=== PATIENT | female | born 1975 | race Caucasian/White ===

== ENCOUNTER 2016-03-16 13:22 | Emergency (ER) | payer SELFPAY ==
[2016-03-16] MEDS ORDERED: Dexamethasone 20 MG/5 ML VIAL ONE (13:42)
[2016-03-16] MEDS ORDERED: Acetaminophen/Codeine 30-300mg Tablet ONE (13:42)
--- NOTE | 2016-03-16 15:16 | ERRECORD ---
[facility] EMERGENCY RECORD HPI SHOULDER (13:45 BPIC) CHIEF COMPLAINT: Patient presents for evaluation of injury, to the left shoulder. HISTORIAN: History provided by patient, pt was lifting a cinder block 3 days ago and started to have pain shoot down her left arm after she felt a pop in her left shoulder. pain started at her wrist and has progressed to her shoulder and left side of neck. she has tried Tylenol 3 and ibuprofen and lidocaine crem without much improvement. multiple back problems and recent carpal tunnel surgery have left her with extra Tylenol 3 to take. sharp pain, radiates down the left arm and improves if she holds the left arm still with her right arm. ROS (13:48 BPIC) CONSTITUTIONAL: Negative constitutional review of systems. EYES: Negative eye review of systems. ENT: Negative ears, nose, throat review of systems. CARDIOVASCULAR: Negative cardiovascular review of systems. RESPIRATORY: Negative respiratory review of systems. GI: Negative gastrointestinal review of systems. MUSCULOSKELETAL: see hpi. SKIN: Negative skin review of systems. PSYCHIATRIC: Negative psychiatric review of systems. NOTES: All other ROS is negative except as listed in HPI. PAST MEDICAL HISTORY MEDICAL HISTORY: Notes: chronic back/neck pain, Past medical history includes endocrine disease, hypothyroidism, Past medical history includes history of malignancy, primary site cervical. (13:37 MSPE) FEMALE SURGICAL HISTORY: Surgical history of carpal tunnel surgery, Date of surgery Jan, 2016, Notes: bilateral, hemorrhoidectomy, Surgical history of section, Notes: x 2. (13:37 MSPE) PSYCHIATRIC HISTORY: No previous psychiatric history. (13:37 MSPE) SOCIAL HISTORY: Patient denies alcohol use, Patient denies drug use, Patient currently uses tobacco, smokes cigarettes 1/2 ppd. (13:37 MSPE) NOTES: I have reviewed and agree with the PMH/PSxH/FamHx/SocHx obtained by the nurse. (13:48 BPIC) KNOWN ALLERGIES Penicillins CURRENT MEDICATIONS Synthroid: TABLET : Strength - 100 mcg : ORAL Patient Dose: 137 mcg Oral once a day (in the morning). (13:27 MSPE) &a-1R&a+25V*p+0X*c5245H*c202B*c15G*c2P*p-0X&a-25V&a+1R Name: ThorneGillian suarez : 1975 F40 MedRec: [id number] AcctNum: [id number] Prepared: MonMar 16, 2016 15:19 by Interface Page 1 of 3 pMD [facility] EMERGENCY RECORD Tylenol-Codeine #3: TABLET : Strength - 300 mg-30 mg : ORAL Patient Dose: 1 tab(s) Oral 2 times a day. (13:28 MSPE) ibuprofen: TABLET : Strength - 800 mg : ORAL Patient Dose: 1 tab(s) Oral 2 times a day. (13:28 MSPE) Zanaflex: TABLET : Strength - 4 mg : ORAL Patient Dose: 1 tab(s) Oral once a day (at bedtime). (13:29 MSPE) Cymbalta: CAPSULE,DELAYED RELEASE (ENTERIC COATED) : Strength - 60 mg : ORAL Patient Dose: 1 tab(s) Oral once a day (at bedtime). (13:30 MSPE) VITAL SIGNS (13:25 MSPE) VITAL SIGNS: BP: 185/79, Pulse: 79, Resp: 18, Temp: 98.2 (Oral), Pain: 8, O2 sat: 96 on Room Air, Time: 03/16/2016 13:25. PHYSICAL EXAM CONSTITUTIONAL: Vital signs reviewed, Patient afebrile, Pulse normal, Blood pressure normal, Respiratory rate normal, Patient appears non toxic, Patient appears pain free, Patient alert and oriented to person, place and time. (13:48 BPIC) HEAD: Head exam included findings of head atraumatic, normocephalic. (13:48 BPIC) EYES: Eye exam included findings of eyelids normal to inspection, Pupils equally round and reactive to light, Extraocular muscles intact. (13:48 BPIC) ENT: ENT exam normal. (13:48 BPIC) NECK: Neck exam included findings of normal range of motion, Trachea midline. (13:48 BPIC) RESPIRATORY CHEST: Respiratory exam included findings of no respiratory distress, Breath sounds clear. (13:48 BPIC) CARDIOVASCULAR: Cardiovascular exam included findings of heart rate regular rate and rhythm, Heart sounds normal. (13:48 BPIC) UPPER EXTREMITY: carpal tunnel surgery scars to both anterior wrists. otherwise right arm is normal. left arm has tenderness to anterior shoulder and left upper back just medial to the scapula. (13:49 BPIC) NEURO: Neuro exam findings include patient oriented to person, place and time, Speech normal. (13:48 BPIC) PSYCHIATRIC: Psychiatric exam included findings of patient oriented to person place and time, Normal affect. (13:48 BPIC) RADIOLOGYINTERPRETATION (14:03 BPIC) UPPER EXTERMITIES: Radiological interpretation of, the left shoulder shows, no fracture, no dislocation, no foreign body, no bony lesion, no degenerative joint disease, no effusion, calcific tendinosis. &a-1R&a+25V*p+0X*u9706G*c202B*c15G*c2P*p-0X&a-25V&a+1R Name: Gillian Thorne : 1975 F40 MedRec: [id number] AcctNum: [id number] Prepared: MonMar 16, 2016 15:19 by Interface Page 2 of 3 pMD [facility] EMERGENCY RECORD MEDICATION ADMINISTRATION SUMMARY Drug Name: Decadron injection, Dose Ordered: 10 mg, Route: Intramuscular, Status: Given, Time: 13:49 03/16/2016, Drug Name: Aceta-Codeine, Dose Ordered: 300/30 mg, Route: Oral, Status: Given, Time: 13:48 03/16/2016, Detailed record available in Medication Service section. DOCTOR NOTES (14:03 BPIC) TEXT: I discussed the diagnosis with the patient prior to discharge. All questions were answered. There is no indication for admission currently and the patient will follow up with his primary care physician. Any pertinent labs or imaging was reviewed and dicussed with the patient. If any new or emergent symptoms occur, the patient will return to the emergency department. PROBLEM LIST No recorded problems DIAGNOSIS (14:04 BPIC) FINAL: PRIMARY: left shoulder strain, ADDITIONAL: calcific tendinosis. PRESCRIPTION (14:05 BPIC) Flexeril: TABLET : 5 mg : ORAL : Quantity: 5 Unit: mg Route: ORAL Schedule: every 8 hours PRN Dispense: 30 Unit: tab(s) May substitute. Refills: No Refills . NOTES: No Refills. DISPOSITION PATIENT: Disposition Type: Discharge, Disposition: *Discharge Home, Condition: Good. (14:04 BPIC) Patient left the department. (15:10 MSPE) [place]: BPIC=MD Dyana, Chris MSPE=CANDIDA Andrade, Delores &a-1R&a+25V*p+0X*e1968K*c202B*c15G*c2P*p-0X&a-25V&a+1R Name: Gillian Thorne : 1975 F40 MedRec: [id number] AcctNum: [id number] Prepared: MonMar 16, 2016 15:19 by Interface Page 3 of 3 pMD MTDD
--- NOTE | 2016-03-16 15:23 | PICIS ---
[facility] EMERGENCY RECORD TRIAGE (MonMar 16, 2016 13:27 MSPE) TRIAGE NOTES: pain from left scapula/shoulder down to fingers. Onset three days after carrying cinder block. (MonMar 16, 2016 13:27 MSPE) PATIENT: NAME: Gillian Thorne, AGE: 40, GENDER: female, : Mon1975, TIME OF GREET: MonMar 16, 2016 13:23, PREFERRED LANGUAGE: Kazakh, ETHNICITY: Not or , ECODE BILLING MAP: [facility], SSN: [id number], Zip Code: [address], KG WEIGHT: 98.88, PHONE: CELL, , , PERSON ID: [id number], PCP: Srini SALAMANCA ZENIA. (MonMar 16, 2016 13:27 MSPE) COMPLAINT: LEFT ARM/SHOULDER PAIN. (MonMar 16, 2016 13:27 MSPE) ADMISSION: URGENCY: 4 Non Urgent, ADMISSION SOURCE: Home, TRANSPORT: CAR, BED: ER -03. (MonMar 16, 2016 13:27 MSPE) LMP: LMP: Hysterectomy. (13:37 MSPE) PROVIDERS: TRIAGE NURSE: Delores Andrade RN. (MonMar 16, 2016 13:27 MSPE) VITAL SIGNS: BP 185/79, Pulse 79, Resp 18, Temp 98.2, (Oral), Pain 8, O2 Sat 96, on Room Air, Time 03/16/2016 13:25. (13:25 MSPE) KNOWN ALLERGIES Penicillins CURRENT MEDICATIONS Synthroid: TABLET : Strength - 100 mcg : ORAL Patient Dose: 137 mcg Oral once a day (in the morning). (13:27 MSPE) Tylenol-Codeine #3: TABLET : Strength - 300 mg-30 mg : ORAL Patient Dose: 1 tab(s) Oral 2 times a day. (13:28 MSPE) ibuprofen: TABLET : Strength - 800 mg : ORAL Patient Dose: 1 tab(s) Oral 2 times a day. (13:28 MSPE) Zanaflex: TABLET : Strength - 4 mg : ORAL Patient Dose: 1 tab(s) Oral once a day (at bedtime). (13:29 MSPE) Cymbalta: CAPSULE,DELAYED RELEASE (ENTERIC COATED) : Strength - 60 mg : ORAL Patient Dose: 1 tab(s) Oral once a day (at bedtime). (13:30 MSPE) VITAL SIGNS (13:25 MSPE) VITAL SIGNS: BP: 185/79, Pulse: 79, Resp: 18, Temp: 98.2 (Oral), Pain: 8, O2 sat: 96 on Room Air, Time: 03/16/2016 13:25. NURSING ASSESSMENT: EXTREMITY UPPER (13:32 MSPE) CONSTITUTIONAL: Patient arrives ambulatory, Gait steady, History obtained from patient, Patient appears, anxious, Patient &a-1R&a+25V*p+0X*t2101E*c202B*c15G*c2P*p-0X&a-25V&a+1R Name: Gillian Thorne : 1975 F40 MedRec: [id number] AcctNum: [id number] Prepared: MonMar 16, 2016 15:19 by Interface Page 1 of 6 pMD [facility] EMERGENCY RECORD cooperative, Patient alert, Oriented to person, place and time, Skin warm, Skin dry. PAIN: sts pain from hand/fingertips to left shoulder and scapular area., constant, Noticed pain initially in hand after carrying cinder block. LEFT UPPER EXTREMITY: Left upper extremity assessment findings include capillary refill less than 2 seconds, Skin color normal to hand, Skin temperature to hand warm, Distal sensation intact, radial pulse is +3. NURSING PROCEDURE: DISCHARGE NOTE (15:05 MSPE) DISCHARGE: Patient discharged to home, ambulating without assistance, family driving, accompanied by other family member, Summary of Care printed/ provided, Discharge instructions given to patient, Simple or moderate discharge teaching performed, Prescriptions given and instructions on side effects given, Above person(s) verbalized understanding of discharge instructions and follow-up care, Patient treated and evaluated by physician. BELONGINGS: Belongings remain with patient, Notes: Pt's [id number]-[id number] back. Pt dc'd in NAD. NURSING PROCEDURE: NURSE NOTES (14:10 MSPE) NURSES NOTES: Notes: DC paperwork ready; pt calling [id number] to return for transportation home. NURSING PROCEDURE: SPLINTING (14:00 MSPE) SPLINTING: Splinting indicated for strain care, Splinting indicated for pain control, Notes: arm sling to left arm. FOLLOW-UP: After procedure, capillary refill less than 2 seconds, After procedure, distal circulation intact, After procedure, distal motor function intact, After procedure, distal sensation intact, After procedure, distal pulses present. ORDER DETAILS Order Name: Miscellaneous Nurse Order(s), Status: Done, Time: 14:07 03/16/2016, [facility], - Ordered for: MD Turpin Bryan, - Entered by: CANDIDA Andrade Marilyn - MonMar 16, 2016 14:07, - Quantity: 1, Order Name: XR Shoulder Lt 3 View STANDARD, Status: Active, Time: 13:45 03/16/2016, User: [facility], - Ordered for: MD Turpin Bryan, - Entered by: MD Turpin Bryan - MonMar 16, 2016 13:45, - Quantity: 1. MEDICATION ADMINISTRATION SUMMARY Drug Name: Decadron injection, Dose Ordered: 10 mg, Route: Intramuscular, Status: Given, Time: 13:49 03/16/2016, &a-1R&a+25V*p+0X*n3262Y*c202B*c15G*c2P*p-0X&a-25V&a+1R Name: Gillian Thorne : 1975 F40 MedRec: [id number] AcctNum: [id number] Prepared: MonMar 16, 2016 15:19 by Interface Page 2 of 6 pMD [facility] EMERGENCY RECORD Drug Name: Aceta-Codeine, Dose Ordered: 300/30 mg, Route: Oral, Status: Given, Time: 13:48 03/16/2016, Detailed record available in Medication Service section. MEDICATION SERVICE Aceta-Codeine: Order: Aceta-Codeine (acetaminophen/codeine phosphate) - Dose: 300/30 mg : Oral Schedule: Now Ordered by: [place] Turpin MD Entered by: Chris Turpin MD MonMar 16, 2016 13:43 , Acknowledged by: Delores Andrade RN MonMar 16, 2016 13:45 Documented as given by: [place] Andrade RN MonMar 16, 2016 13:48 Patient, Medication, Dose, Route and Time verified prior to administration. Amount given: 1 tab, Site: Medication administered P.O., Patient appears Awake and alert- acceptable, Correct patient, time, route, dose and medication confirmed prior to administration, Patient advised of actions and side-effects prior to administration, Allergies confirmed and medications reviewed prior to administration, Patient in position of comfort, Side rails up, Cart in lowest position, Family at bedside. Decadron injection: Order: Decadron injection (dexamethasone sod phosphate) - Dose: 10 mg : Intramuscular Schedule: Now Ordered by: [place] Turpin MD Entered by: [place] Turpin MD MonMar 16, 2016 13:42 , Acknowledged by: [place] Andrade RN MonMar 16, 2016 13:43 Documented as given by: [place] Andrade RN MonMar 16, 2016 13:49 Patient, Medication, Dose, Route and Time verified prior to administration. IM medication, Amount given: 10mg, Medication administered to right thigh, Patient appears Awake and alert- acceptable, Correct patient, time, route, dose and medication confirmed prior to administration, Patient advised of actions and side-effects prior to administration, Allergies confirmed and medications reviewed prior to administration, Patient in position of comfort, Side rails up, Cart in lowest position, Family at bedside. HPI SHOULDER (13:45 BPIC) CHIEF COMPLAINT: Patient presents for evaluation of injury, to the left shoulder. HISTORIAN: History provided by patient, pt was lifting a cinder block 3 days ago and started to have pain shoot down her left arm after she felt a pop in her left shoulder. pain started at her wrist and has progressed to her shoulder and left side of neck. she has tried Tylenol 3 and ibuprofen and lidocaine crem without much improvement. multiple back problems and recent carpal tunnel surgery have left her with extra Tylenol 3 to take. sharp pain, radiates down the left arm and improves if she holds the left arm still with her right arm. &a-1R&a+25V*p+0X*e4611H*c202B*c15G*c2P*p-0X&a-25V&a+1R Name: Gillian Thorne : 1975 F40 MedRec: [id number] AcctNum: [id number] Prepared: MonMar 16, 2016 15:19 by Interface Page 3 of 6 pMD [facility] EMERGENCY RECORD ROS (13:48 BPIC) CONSTITUTIONAL: Negative constitutional review of systems. EYES: Negative eye review of systems. ENT: Negative ears, nose, throat review of systems. CARDIOVASCULAR: Negative cardiovascular review of systems. RESPIRATORY: Negative respiratory review of systems. GI: Negative gastrointestinal review of systems. MUSCULOSKELETAL: see hpi. SKIN: Negative skin review of systems. PSYCHIATRIC: Negative psychiatric review of systems. NOTES: All other ROS is negative except as listed in HPI. PAST MEDICAL HISTORY MEDICAL HISTORY: Notes: chronic back/neck pain, Past medical history includes endocrine disease, hypothyroidism, Past medical history includes history of malignancy, primary site cervical. (13:37 MSPE) FEMALE SURGICAL HISTORY: Surgical history of carpal tunnel surgery, Date of surgery Jan, 2016, Notes: bilateral, hemorrhoidectomy, Surgical history of section, Notes: x 2. (13:37 MSPE) PSYCHIATRIC HISTORY: No previous psychiatric history. (13:37 MSPE) SOCIAL HISTORY: Patient denies alcohol use, Patient denies drug use, Patient currently uses tobacco, smokes cigarettes 1/2 ppd. (13:37 MSPE) NOTES: I have reviewed and agree with the PMH/PSxH/FamHx/SocHx obtained by the nurse. (13:48 BPIC) PHYSICAL EXAM CONSTITUTIONAL: Vital signs reviewed, Patient afebrile, Pulse normal, Blood pressure normal, Respiratory rate normal, Patient appears non toxic, Patient appears pain free, Patient alert and oriented to person, place and time. (13:48 BPIC) HEAD: Head exam included findings of head atraumatic, normocephalic. (13:48 BPIC) EYES: Eye exam included findings of eyelids normal to inspection, Pupils equally round and reactive to light, Extraocular muscles intact. (13:48 BPIC) ENT: ENT exam normal. (13:48 BPIC) NECK: Neck exam included findings of normal range of motion, Trachea midline. (13:48 BPIC) RESPIRATORY CHEST: Respiratory exam included findings of no respiratory distress, Breath sounds clear. (13:48 BPIC) CARDIOVASCULAR: Cardiovascular exam included findings of heart rate regular rate and rhythm, Heart sounds normal. (13:48 BPIC) UPPER EXTREMITY: carpal tunnel surgery scars to both anterior wrists. otherwise right arm is normal. left arm has tenderness to anterior shoulder and left upper back just medial to &a-1R&a+25V*p+0X*s9306M*c202B*c15G*c2P*p-0X&a-25V&a+1R Name: Gillian Thorne : 1975 F40 MedRec: [id number] AcctNum: [id number] Prepared: MonMar 16, 2016 15:19 by Interface Page 4 of 6 pMD [facility] EMERGENCY RECORD the scapula. (13:49 BPIC) NEURO: Neuro exam findings include patient oriented to person, place and time, Speech normal. (13:48 BPIC) PSYCHIATRIC: Psychiatric exam included findings of patient oriented to person place and time, Normal affect. (13:48 BPIC) EVENTS TRANSFER: Triage to Emergency Emergency Room -03. (MonMar 16, 2016 13:27 MSPE) Removed from Emergency Emergency Room -03. (15:10 MSPE) RADIOLOGYINTERPRETATION (14:03 BPIC) UPPER EXTERMITIES: Radiological interpretation of, the left shoulder shows, no fracture, no dislocation, no foreign body, no bony lesion, no degenerative joint disease, no effusion, calcific tendinosis. DOCTOR NOTES (14:03 BPIC) TEXT: I discussed the diagnosis with the patient prior to discharge. All questions were answered. There is no indication for admission currently and the patient will follow up with his primary care physician. Any pertinent labs or imaging was reviewed and dicussed with the patient. If any new or emergent symptoms occur, the patient will return to the emergency department. PROBLEM LIST No recorded problems DIAGNOSIS (14:04 BPIC) FINAL: PRIMARY: left shoulder strain, ADDITIONAL: calcific tendinosis. DISPOSITION PATIENT: Disposition Type: Discharge, Disposition: *Discharge Home, Condition: Good. (14:04 BPIC) Patient left the department. (15:10 MSPE) INSTRUCTION (14:05 BPIC) DISCHARGE: SHOULDER SPRAIN, CALCIFIC TENDONITIS. FOLLOWUP: Katelin SALAMANCA., [place], [place], [address], [address], [place] [address], [phone], MD Elham, Uday, Orthopedic Surgery, [address], [address], [place] [address], . SPECIAL: Thank you for choosing [facility] Emergency Department for your care today! Please follow up with your primary doctor in the next 2-3 days. Return to the emergency department with any other worsening or emergent symptoms. God bless you!. PRESCRIPTION (14:05 BPIC) &a-1R&a+25V*p+0X*h5486K*c202B*c15G*c2P*p-0X&a-25V&a+1R Name: Gillian Thorne : 1975 F40 MedRec: [id number] AcctNum: [id number] Prepared: MonMar 16, 2016 15:19 by Interface Page 5 of 6 pMD [facility] EMERGENCY RECORD Flexeril: TABLET : 5 mg : ORAL : Quantity: 5 Unit: mg Route: ORAL Schedule: every 8 hours PRN Dispense: 30 Unit: tab(s) May substitute. Refills: No Refills . NOTES: No Refills. IMAGING *DISCHARGE INSTRUCTIONS RECEIPT: Image captured from scanner. (15:09 MSPE) Page 2 added. Image captured from scanner. (15:10 MSPE) *SUPPLY CHARGE SHEET: Image captured from scanner. (15:10 MSPE) ADMIN (15:16 BPIC) DIGITAL SIGNATURE: MD Turpin Bryan. Rhodes: BPIC=MD Turpin Bryan MSPE=CANDIDA Andrade, Delores &a-1R&a+25V*p+0X*o7282J*c202B*c15G*c2P*p-0X&a-25V&a+1R Name: Gillian Thorne : 1975 F40 MedRec: [id number] AcctNum: [id number] Prepared: MonMar 16, 2016 15:19 by Interface Page 6 of 6 pMD MTDD
--- NOTE | 2016-03-16 16:06 | RAD ---
THREE VIEWS LEFT SHOULDER: Date: 03-16-16 Comparison: None. History: Pain to the left shoulder after carrying a cinder block three days ago. FINDINGS: There is a small calcific density measuring 4-5 mm superior to the humeral head on the oblique view , suspicious for a calcific tendinosis. There is minimal AC joint degenerative change. There is no acute fracture or dislocation. No widening of the acromioclavicular or coracoclavicular interspace . IMPRESSION: Findings suggest calcific tendinosis. No acute osseous abnormality. POS: [facility]
== END 2016-03-16 15:05 | disposition home or self-care (01) ==
LOC: NAV ERS 13:22
DX: S46.912A Strain of unspecified muscle, fascia and tendon at shoulder and upper arm level, left arm, initial encounter (principal); M65.20 Calcific tendinitis, unspecified site; E03.9 Hypothyroidism, unspecified; X50.0XXA Overexertion from strenuous movement or load, initial encounter
CPT/HCPCS: 96372; J1100

== ENCOUNTER 2016-09-07 13:54 | Outpatient (CLI) | payer OTHER ==
--- NOTE | 2016-09-08 07:41 | RAD ---
PELVIS 3 VIEWS: HISTORY: Disability evaluation. FINDINGS: Pelvic ring is intact. There are no signs of any fracture. SI joints are symmetric. There is no e vidence of any joint space narrowing. There are very minimal arthritic changes of the hip regions. IMPRESSION: No acute findings. Very minimal arthritic changes of the hips are noted. POS: [facility]
--- NOTE | 2016-09-08 07:41 | RAD ---
LUMBAR SPINE SERIES THREE VIEWS: History: Disability evaluation. FINDINGS: Vertebral bodies are normal in height. Degenerative osteophytes are present. There is some disc narr owing at L2-3 and L3-4. There are degenerative facet changes. Pedicles are intact. IMPRESSION: Mild arthritic changes of the spine. POS: [facility]
--- NOTE | 2016-09-08 07:41 | RAD ---
RADIOGRAPH CERVICAL SPINE 3 VIEWS: HISTORY: A 40-year-old female with disability. Cervicalgia. COMPARISON: None. FINDINGS: There are metallic disk prostheses at the C4-5 and C5-6 slightly widened disk spaces. There is mild narrowing of the anterior portion of the C6-7 disk space. Vertebral body heights are maintained. C7-T1 junction is obscured by the shoulders on the lateral view. No major pathology identified on t he open mouth view. No high-grade degenerative facet changes or severe disk space narrowing at any level. IMPRESSION: 1. Artificial disks at C4-5 and C5-6. 2. Mild degenerative disk changes at C6-7. 3. Otherwise, no major pathology identified. VALERIE [] POS: [facility]
== END 2016-09-07 13:55 | disposition home or self-care (01) ==
LOC: NAV RAD 13:54
PROVIDERS: ATTEND Family Medicine
DX: Z02.71 Encounter for disability determination (principal); M47.816 Spondylosis without myelopathy or radiculopathy, lumbar region; M47.812 Spondylosis without myelopathy or radiculopathy, cervical region
CPT/HCPCS: 72040; 72100; 72190

== ENCOUNTER 2019-04-19 11:05 | Emergency (ER) | payer OTHER, SELFPAY ==
[2019-04-19] MEDS ORDERED: Ketorolac Tromethamine 60 MG/2 ML VIAL ONE (11:36)
[2019-04-19] MEDS ORDERED: Acetaminophen/Codeine 30-300mg Tablet ONE (11:37)
[2019-04-19] MEDS ORDERED: Cyclobenzaprine 10 MG TAB ONE (11:39)
--- NOTE | 2019-04-19 12:17 | RAD ---
LUMBAR SPINE 3 VIEWS: HISTORY: Back pain. COMPARISON: 09/07/2016. FINDINGS: The lumbar vertebrae maintain normal height and alignment. Disk spaces are maintained. Mild spurrin g is seen slightly more prominent than on the prior study. No evidence of spondylolisthesis. Spondy lolysis at L5-S1 cannot be excluded. IMPRESSION: Mild degenerative change of the lumbar spine. There is mild facet hypertrophy. Question spondylolys is at L5-S1. POS: [facility]
== END 2019-04-19 12:39 | disposition home or self-care (01) ==
LOC: NAV ERS 11:05
DX: M54.16 Radiculopathy, lumbar region (principal); G89.29 Other chronic pain; E03.9 Hypothyroidism, unspecified; I10 Essential (primary) hypertension; E11.40 Type 2 diabetes mellitus with diabetic neuropathy, unspecified; F41.9 Anxiety disorder, unspecified; F41.0 Panic disorder [episodic paroxysmal anxiety]; F17.210 Nicotine dependence, cigarettes, uncomplicated; Z79.84 Long term (current) use of oral hypoglycemic drugs; Z79.899 Other long term (current) drug therapy
CPT/HCPCS: 72100; 96372; J1885